=== PATIENT | female | born 2000 | race Two or more races ===

== ENCOUNTER 2024-05-25 06:20 | Emergency (ER) | payer OTHER ==
[~2024-05-25] VITALS: Ht 165.1 cm; Wt 72.6 kg
[2024-05-25 06:26] VITALS: BP 132/86; TEMP 98.2; O2SAT 98
[2024-05-25] MEDS ORDERED: FLUORESCEIN SODIUM OPHTH 1 EA STRIP ONE (06:32)
[2024-05-25] MEDS ORDERED: TETRAcaine 5 ML BOTTLE ONE (06:33)
== END 2024-05-25 06:55 | disposition home or self-care (01) ==
LOC: ER 06:24
DX: H11.33 Conjunctival hemorrhage, bilateral (principal)